=== PATIENT | female | born 1970 | race Caucasian/White ===

== ENCOUNTER → 2021-01-19 | Outpatient (CLI) | payer OTHER ==
[~2021-01-19] MED LIST: CRUTCH4 USE; HYDACE5 PO; IBUP800 PO; META800 PO; OXYACE5T PO
== END ==
LOC: LAB SHORT 07:48 → LAB 07:48
DX: N92.0 Excessive and frequent menstruation with regular cycle (principal); N85.00 Endometrial hyperplasia, unspecified; D26.0 Other benign neoplasm of cervix uteri; Z88.0 Allergy status to penicillin
CPT/HCPCS: 88305

== ENCOUNTER 2021-03-18 11:39 | Day surgery (SDC) | payer OTHER ==
[~2021-03-18] VITALS: Ht 175.3 cm; Wt 79.6 kg
[2021-03-18] MEDS ORDERED: LORA.5 PO (11:59)
--- NOTE | 2021-03-18 13:52 | NUR ---
03/18/21 1352 Baldemar Pierre A DEFICIT OF 200ML'[id number]. DR MAGALY SUBRAMANIAN.
== END 2021-03-18 14:48 | disposition home or self-care (01) ==
LOC: ORSCSDS 11:39
PROVIDERS: Obstetrics & Gynecology
PROC: 0U5B8ZZ Destruction of Endometrium, Via Natural or Artificial Opening Endoscopic (ICD-10-PCS; principal; 2021-03-18 12:00)
DX: N92.0 Excessive and frequent menstruation with regular cycle (principal); F41.9 Anxiety disorder, unspecified; Z79.899 Other long term (current) drug therapy
CPT/HCPCS: 88305; A9270; J1100; J1885; J2405; J2704; J3010

== ENCOUNTER → 2022-06-21 | Outpatient (CLI) | payer OTHER ==
[~2022-06-21] MED LIST changes: +LORA.5 PO
[2022-06-23 15:11] LABS: HPV 16 Negative (Negative); HPV 18 Negative (Negative); HPV OTHER HR TYPES Negative (Negative)
== END ==
LOC: LAB 16:59 → LAB SHORT 16:59
PROVIDERS: Obstetrics & Gynecology
DX: Z01.419 Encounter for gynecological examination (general) (routine) without abnormal findings (principal)
CPT/HCPCS: 87624; G0145